=== PATIENT | female | born 1970 | race Caucasian/White ===

== ENCOUNTER 2021-09-04 10:19 | Emergency (ER) | payer BC ==
[~2021-09-04] VITALS: Ht 152.4 cm; Wt 81.8 kg
[~2021-09-04 10:19] MED LIST: DOXYCYCLINE 10100 MG PO; GLUCOPHAGE500 MG/TAB PO
[2021-09-04 10:28] VITALS: TEMP 98.5
[2021-09-04 11:31] LABS: HEMATOCRIT 37.3 % (37.0-47.0); HEMOGLOBIN 12.4 g/dl (12.5-16.0); MEAN CELL VOLUME 75 fl (80.0-100.0); MEAN CORPUSCULAR HEMOGLOBIN 25 pg (27-31); MEAN CORPUSCULAR HGB CONC 33 g/dl (33.0-37.0); MEAN PLATELET VOLUME 9.9 fl (7.4-10.4); PLATELET COUNT 348 K/mm3 (130-400); RED BLOOD COUNT 4.95 M/mm3 (4.10-5.30)
[2021-09-04 11:47] LABS: BAND 1 % (0-10); EOSINOPHIL 2 % (0-4); LYMPHOCYTE 30 % (20.0-51.0); NEUTROPHILS 62 % (42.0-75.2); PLATELET ESTIMATE NORMAL (NORMAL)
[2021-09-04 11:49] LABS: MICROCYTOSIS 1+
[2021-09-04 11:50] LABS: ALBUMIN 2.8 gm/dL (3.5-5.0); BILIRUBIN,TOTAL 0.2 mg/dL (0.2-1.2); CREATININE, serum 0.7 mg/dL (0.57-1.11); POTASSIUM 3.6 mmol/L (3.5-4.5); TOTAL PROTEIN 6.1 gm/dL (6.2-8.1)
[2021-09-04 14:09] VITALS: BP 194/99; PULSE 83
[2021-09-04] MEDS ORDERED: DOXYCYCLINE 10100 MG PO (14:18)
[2021-09-04] MEDS ORDERED: GLUCOPHAGE500 MG/TAB PO (14:18)
[2021-09-04] MEDS ORDERED: AMOXICILLIN 8751 TAB PO (14:18)
== END 2021-09-04 14:30 | disposition home or self-care (01) ==
LOC: COL.ER 10:19
PROVIDERS: Nurse Practitioner Family
DX: L02.211 Cutaneous abscess of abdominal wall (principal); E11.65 Type 2 diabetes mellitus with hyperglycemia; R03.0 Elevated blood-pressure reading, without diagnosis of hypertension; Z86.14 Personal history of Methicillin resistant Staphylococcus aureus infection

== ENCOUNTER → 2024-01-31 | Outpatient (CLI) | payer BC ==
[~2024-01-31] MED LIST changes: +AMOXICILLIN 8751 TAB PO; +DIOVAN 160MG160 MG PO; +FARXIGA10 PO; +GLUCOPHAGE XR500 M1 PO; +LIPITOR 10MG10 MG PO; +OZEMPIC1 MG/0.71 SQ
== END ==
LOC: MC.RAD 07:00
DX: Z12.31 Encounter for screening mammogram for malignant neoplasm of breast (principal)